=== PATIENT | male | born 1980 | race Caucasian/White ===

== ENCOUNTER 2018-03-07 07:26 | Emergency (ER) | payer BC ==
[2018-03-07 07:38] VITALS: BP 125/63
--- NOTE | 2018-03-07 07:50 | UC ---
Throat Pain/Nasal [place] HPI - HPI Summary HPI Summary: 37-year-old male comes in to clinic today with a chief complaint of left facial swelling. This started about a week ago just above a left upper molar that he' s had work done on. He has an appointment with his dentist on March 09, 2018. He has been blowing out yellow green rhinorrhea from the left nostril. No fevers. Pain initially was worse with chewing. Now he does not have any dental pain. Started with the swelling in the last 1-2 days. - History of Current Complaint Chief Complaint: UCRespiratory Stated Complaint: SINUS ISSUE Time Seen by Provider: 03/07/18 07:41 Pain Intensity: 0 - Allergies/Home Medications Allergies/Adverse Reactions: Allergies Allergy/AdvReac Type Severity Reaction Status Date / Time No Known Allergies Allergy Verified 03/07/18 07:38 Home Medications: Home Medications Cholecalciferol TAB* [Vitamin D TAB*] 1,000 unit PO DAILY 03/07/18 [History Confirmed 03/07/18] Cyanocobalamin TAB* [Vitamin B12 TAB*] 500 mcg PO DAILY 03/07/18 [History Confirmed 03/07/18] Ibuprofen TAB* [Advil TAB*] 400 mg PO Q6H PRN 03/07/18 [History Confirmed ] PMH/Surg Hx/FS Hx/Imm Hx Previously Healthy: Yes - Surgical History Surgical History: Yes Surgery Procedure, Year, and Place: BROKEN LEFT LEG AGE 16-NO METAL. DOG BITE TENDON/BONES REPAIRED RIGHT MIDDLE FINGER AGE 15 - Family History Known Family History: Positive: Diabetes - Social History Alcohol Use: Rare Substance Use Type: None Smoking Status (MU): Never Smoked Tobacco Review of Systems All Other Systems Reviewed And Are Negative: Yes Constitutional: Positive: Negative Skin: Positive: Negative Eyes: Positive: Negative ENT: Positive: Dental Pain, Ear Ache, Nasal Discharge, Sinus Congestion, Sinus Pain/Tenderness Respiratory: Positive: Negative Cardiovascular: Positive: Negative Gastrointestinal: Positive: Negative Motor: Positive: Negative Neurovascular: Positive: Negative Musculoskeletal: Positive: Negative Neurological: Positive: Negative Psychological: Positive: Negative Is Patient Immunocompromised?: No Physical Exam Triage Information Reviewed: Yes Appearance: Well-Appearing, No Pain Distress, Well-Nourished Vital Signs: Initial Vital Signs Temp 97.7 F 03/07/18 07:32 Pulse 65 03/07/18 07:32 Resp 14 03/07/18 07:32 BP 125/63 03/07/18 07:32 Pulse Ox 99 03/07/18 07:32 Vital Signs Reviewed: Yes Eye Exam: Normal Eyes: Positive: Conjunctiva Clear ENT: Positive: Nasal congestion, Nasal drainage, TMs normal, Sinus tenderness - LEFT MAXILLARY SWELLING, Uvula midline. Negative: Tonsillar swelling, Tonsillar exudate Dental: Negative: Percussion Tenderness @ Neck exam: Normal Neck: Positive: Supple Respiratory: Positive: Lungs clear, Normal breath sounds, No respiratory distress Cardiovascular: Positive: RRR Musculoskeletal Exam: Normal Musculoskeletal: Positive: Strength Intact, ROM Intact Neurological Exam: Normal Neurological: Positive: Alert, Muscle Tone Normal Psychological Exam: Normal Psychological: Positive: Normal Response To Family Skin Exam: Normal Throat Pain/Nasal Course/Dx - Differential Dx/Diagnosis Provider Diagnoses: SINUSITIS. DENTAL INFECTION Discharge - Sign-Out/Discharge Documenting (check all that apply): Patient Departure All imaging exams completed and their final reports reviewed: No Studies - Discharge Plan Condition: Stable Disposition: HOME Prescriptions: Amoxicillin/Clavulanate TAB* [Augmentin TAB 875*] 875 mg PO BID #20 tab Patient Education Materials: Sinusitis (ED), Toothache (ED) Referrals: Angela Hernandez MD [Primary Care Provider] - Additional Instructions: FOLLOW UP WITH YOUR DENTIST. GET RECHECKED FOR ANY WORSENING OF YOUR CONDITION OR QUESTIONS OR CONCERNS. - Billing Disposition and Condition Condition: STABLE Disposition: Home
== END 2018-03-07 07:59 | disposition home or self-care (01) ==
LOC: UCEAST 07:26
DX: J32.9 Chronic sinusitis, unspecified (principal); K04.7 Periapical abscess without sinus
CPT/HCPCS: 99212; G0463